=== PATIENT | male | born 1985 | race Caucasian/White ===

== ENCOUNTER → 2017-01-22 | Outpatient (REF) ==
[~2017-01-22] MED LIST: DOXYCYCLINE 10100 MG PO; NO HOME MEDICATIONS; PREDNISONE20 MG PO
== END ==
LOC: ZLAB.WCH 10:46
DX: Z01.89 Encounter for other specified special examinations (principal)

== ENCOUNTER 2017-01-24 14:49 | Emergency (ER) | payer OTHER ==
[~2017-01-24] VITALS: Ht 165.1 cm; Wt 100.0 kg
[~2017-01-24 14:49] MED LIST changes: -DOXYCYCLINE 10100 MG PO; -PREDNISONE20 MG PO
[2017-01-24] MEDS ORDERED: DOXYCYCLINE 10100 MG PO (15:00)
[2017-01-24] MEDS ORDERED: PREDNISONE20 MG PO (15:00)
[2017-01-24 16:56] LABS: BASO # 0.1 (0.0-0.2); BASO % 0.6 % (0.0-2.0); EOS # 0.1 (0.0-0.7); EOS % 0.6 % (0-4.0); GRAN # 12.9 (1.4-6.5); GRAN % 81.9 % (42.2-75.2); HEMOGLOBIN 17.1 g/dl (13.5-18.0); LYMPH # 1.2 (1.2-3.4); LYMPH % 7.3 % (20.0-51.0); MEAN CELL VOLUME 87 fl (80.0-100.0); MEAN CORPUSCULAR HEMOGLOBIN 32 pg (27.0-31.0); MEAN CORPUSCULAR HGB CONC 36 g/dl (33.0-37.0); MEAN PLATELET VOLUME 9.7 fl (7.4-10.4); MONO # 1.2 (0.1-0.6); MONO % 7.6 % (1.7-9.3); PLATELET COUNT 312 K/mm3 (130-400); RED BLOOD COUNT 5.38 M/mm3 (4.20-5.60); REDCELL DISTRIBUTION WIDTH-CV 12.2 % (11.5-14.5); WHITE BLOOD COUNT 15.7 K/mm3 (4.8-10.8)
[2017-01-24 17:12] LABS: ADJUSTED CALCIUM 8.7 mg/dL (8.4-10.2); ALBUMIN 4.6 gm/dL (3.5-5.0); BILIRUBIN,TOTAL 1.2 mg/dL (0.0-1.0); CALCIUM 9.2 mg/dL (8.4-10.2); CREATININE, serum 0.83 mg/dL (0.66-1.25); INR 1.1 (0.8-3.0); MAGNESIUM 2.2 mg/dL (1.6-2.3); PROTHROMBIN TIME 12.2 SECONDS (9.7-12.8); TOTAL PROTEIN 7.9 gm/dL (6.4-8.2)
[2017-01-24 17:15] LABS: PARTIAL THROMBOPLASTIN TIME 32.1 SECONDS (26.0-37.0)
[2017-01-24 18:27] VITALS: TEMP 99.2
[2017-01-24 18:38] LABS: PH 5 (5-8); SQUAMOUS EPITHELIAL None Seen /hpf; URINE APPEARANCE Clear; URINE BACTERIA None Seen /hpf; URINE BILIRUBIN Negative (NEGATIVE); URINE BLOOD Negative (NEGATIVE); URINE COLOR Yellow; URINE GLUCOSE 3+ (NEGATIVE); URINE KETONE Negative (NEGATIVE); URINE RBC 0-2 /hpf; URINE UROBILINOGEN Negative (NEGATIVE); URINE WBC 0-2 /hpf
[2017-01-24 19:51] VITALS: BP 142/80; PULSE 115
== END 2017-01-24 19:53 | disposition home or self-care (01) ==
LOC: COL.ER 14:49
PROVIDERS: Emergency Medicine
DX: L03.313 Cellulitis of chest wall (principal); T63.331A Toxic effect of venom of brown recluse spider, accidental (unintentional), initial encounter; Z23 Encounter for immunization
CPT/HCPCS: J7030

== ENCOUNTER → 2017-09-01 | Outpatient (REF) ==
[~2017-09-01] MED LIST changes: +DOXYCYCLINE 10100 MG PO; +PREDNISONE20 MG PO
== END ==
LOC: ZLAB.WCH 12:06
DX: Z01.89 Encounter for other specified special examinations (principal)